=== PATIENT | female | born 1990 | race American Indian/Alaskan Native ===

== ENCOUNTER 2018-11-21 12:20 | Emergency (ER) | payer MEDICAID ==
--- NOTE | 2018-11-21 12:47 | Emergency Department Report ---
Blank Doc - Documentation Documentation: Patient here for nausea and vomitting this morining. Feels tired. LMP september. No vaginal bleeding or discharge no abdominal pain or painful urination. Feels chills O ABdomen soft. NL BS alert and oriented x3 A/P fatigue Nausea Urine, Hcg
[2018-11-21 13:15] LABS: HCG Qualitative,Urine Positive (Negative)
[2018-11-21 13:16] LABS: Bilirubin,Urine NEG (Negative); Blood,Urine NEG (Negative); Color,Urine Yellow (Yellow); Mucus,Urine 1+ /HPF; Protein,Urine <15 mg/dL mg/dL (Negative); Urobilinogen,Urine < 2.0 mg/dL (<2.0)
[2018-11-21] MEDS ORDERED: ZOFRAN IV ONE (14:04)
[2018-11-21] MEDS ORDERED: PEPCID IV ONE (14:04)
[2018-11-21] MEDS ORDERED: NACL 0.9% 1000 ML 1,000 ML IV ONE (14:04)
--- NOTE | 2018-11-21 15:57 | Emergency Department Report ---
Vomiting/Diarrhea - HPI Chief Complaint: Nausea/Vomiting/Diarrhea Stated Complaint: SICK Time Seen by Provider: 11/21/18 12:43 Duration: patient has had nausea and vomiting for approximately 1 month. Patient states that she has a burning sensation in epigastrium. States she can keep some things down at times and sometimes she can't. Severity: moderate Nausea/Vomiting Severity: Moderate Diarrhea Severity: None Pain Location: Epigastric Pain Severity: Mild Symptoms: Yes Able to Tolerate Fluids (occasionally), No Watery Diarrhea, No Bloody diarrhea, No Fever, No Recent Unusual Foods, No Recent Untreated Water, No Recent use of Antibiotics, No Family w/ Similar Symptoms, No Contacts w/ Sim ilar Symptoms, No Rash, No Hematuria, No Recent URI Symptoms ED Review of Systems ROS: Stated complaint: SICK Other details as noted in HPI Comment: All other systems reviewed and negative ED Past Medical Hx - Past Medical History Previous Medical History?: No - Surgical History Past Surgical History?: No - Social History Smoking Status: Never Smoker Substance Use Type: None - Medications Home Medications: Home Medications Medication Instructions Recorded Confirmed Last Taken Type Ondansetron [Zofran Odt] 4 mg PO Q8HR #10 tab.rapdis 11/21/18 Unknown Rx Vomiting Diarrhea Exam - Exam General: Vital signs noted. No distress. Alert and acting appropriately. HEENT: Yes Moist Mucous Membranes, No Pharyngeal Erythema, No Pharyngeal Exudates, No Rhinorrhea, No Conjuctival Injection, No Frontal Tenderness, No Maxillary Tenderness Neck: No Adenopathy, No Rigidity Lungs: Yes Clear Lung Sounds, Yes Good Air Exchange, No Wheezes, No Stridor, No Cough, No Nasal Flaring, No Retractions, No Use of Accessory Muscles Heart exam: Regular: Yes, Murmur: No, Tachycardia: No Abdomen: Tenderness: No, Peritoneal Signs: No, Distention: No, Hyperactive Bowel sounds: No Skin exam: Rash: No, Edema: No, Normal turgor: Yes Neurologic: Alert and oriented, no deficits. Musculoskeletal: Unremarkable. ED Course Vital Signs 11/21/18 12:35 Temperature 98.1 F Pulse Rate 71 Respiratory 20 Rate Blood Pressure 106/66 O2 Sat by Pulse 100 Oximetry ED Medical Decision Making - Lab Data Lab Results 11/21/18 Range/Units 13:03 Urine Color Yellow (Yellow) Urine Turbidity Slightly-cloudy (Clear) Urine pH 5.0 (5.0-7.0) Ur Specific [place] 1.027 (1.003-1.030) Urine Protein <15 mg/dl (Negative) mg/dL Urine Glucose (UA) Neg (Negative) mg/dL Urine Ketones Neg (Negative) mg/dL Urine Blood Neg (Negative) Urine Nitrite Neg (Negative) Ur Reducing Substances Not Reportable Urine Bilirubin Neg (Negative) Urine Ictotest Not Reportable Urine Urobilinogen < 2.0 (<2.0) mg/dL Ur Leukocyte Esterase Neg (Negative) Urine WBC (Auto) 1.0 (0.0-6.0) /HPF Urine RBC (Auto) 2.0 (0.0-6.0) /HPF U Epithel Cells (Auto) 24.0 H (0-13.0) /HPF Urine Mucus 1+ /HPF Urine HCG, Qual Positive A (Negative) - Medical Decision Making Patient was found to be . Patient has no abdominal pain at this time no vaginal bleeding. Patient was hydrated and does feel better regarding her nausea. Patient be discharged home. Critical care attestation.: If time is entered above; I have spent that time in minutes in the direct care of this critically ill patient, excluding procedure time. ED Disposition Clinical Impression: Hyperemesis gravidarum Disposition: DC-01 TO HOME OR SELFCARE Is pt being admited?: No Does the pt Need Aspirin: No Condition: Stable Instructions: Hyperemesis Gravidarum (ED) Referrals: TROY ELAINE MD [Staff Physician] - 3-5 Days Time of Disposition: 15:59
[2018-11-21 16:08] VITALS: BP 113/63
== END 2018-11-21 16:08 | disposition home or self-care (01) ==
LOC: ED 12:20
DX: O21.0 Mild hyperemesis gravidarum (principal); O26.891 Other specified pregnancy related conditions, first trimester; R10.13 Epigastric pain; Z3A.01 Less than 8 weeks gestation of pregnancy
CPT/HCPCS: 81001; 81025; 96361; 96374; 96375; 99283; J2405; J7030

== ENCOUNTER 2018-12-22 10:44 | Emergency (ER) | payer MEDICAID ==
--- NOTE | 2018-12-22 11:58 | Emergency Department Report ---
HPI - General Chief Complaint: Urogenital-Female Time Seen by Provider: 12/22/18 11:45 - HPI HPI: Room 23 The patient is a 28-year-old female presenting with a chief complaint of lower abdominal pain. The patient states she is approximately 12 weeks gestational age but has not yet seen an [facility] [employer]. The patient states she has not felt movement throughout the . Patient states she's had lower abdominal pain for the past 3 days. Patient denies vaginal bleeding. Patient admits to nausea and vomiting throughout the . Location: [See above] Duration: [See above] Quality: [See above] Severity: [See above] Modifying factors: [see above] Context: [see above] Mode of transportation: [not driving] ED Past Medical Hx - Past Medical History Previous Medical History?: No - Surgical History Past Surgical History?: Yes Additional Surgical History: - Family History Family history: no significant - Social History Smoking Status: Never Smoker Substance Use Type: None - Medications Home Medications: Home Medications Medication Instructions Recorded Confirmed Last Taken Type Ondansetron [Zofran Odt] 4 mg PO Q8HR #10 tab.rapdis 11/21/18 Unknown Rx ED Review of Systems ROS: Stated complaint: 12WKS/NO MOVEMENT Other details as noted in HPI Constitutional: no symptoms reported Eyes: denies: eye pain ENT: denies: throat pain Respiratory: no symptoms reported Cardiovascular: denies: chest pain Endocrine: no symptoms reported Gastrointestinal: abdominal pain, nausea, vomiting Genitourinary: denies: abnormal menses Musculoskeletal: denies: back pain Neurological: denies: headache Physical Exam - Physical Exam Vital Signs: Vital Signs 12/22/18 11:08 Temperature 98.4 F Pulse Rate 76 Respiratory 14 Rate Blood Pressure 102/69 [Left] O2 Sat by Pulse 100 Oximetry Physical Exam: GENERAL: The patient is well-developed well-nourished female lying on stretcher not appearing to be in acute distress. [] HEENT: Normocephalic. Atraumatic. Extraocular motions are intact. Patient has moist mucous membranes. NECK: Supple. Trachea midline CHEST/LUNGS: Clear to auscultation. There is no respiratory distress noted. HEART/CARDIOVASCULAR: Regular. There is no tachycardia. There is no gallop rub or murmur. ABDOMEN: Abdomen is soft, with mild suprapubic discomfort to palpation. Patient has normal bowel sounds. There is no abdominal distention. SKIN: There is no rash. There is no edema. There is no diaphoresis. NEURO: The patient is awake, alert, and oriented. The patient is cooperative. The patient has normal speech MUSCULOSKELETAL: There is no evidence of acute injury. ED Course Vital Signs 12/22/18 11:08 Temperature 98.4 F Pulse Rate 76 Respiratory 14 Rate Blood Pressure 102/69 [Left] O2 Sat by Pulse 100 Oximetry ED Medical Decision Making - Lab Data Result diagrams: 12/22/18 12:08 12/22/18 12:08 Laboratory Tests 12/22/18 12/22/18 12/22/18 12:08 12:08 12:29 WBC 5.5 RBC 4.99 Hgb 12.7 Hct 38.6 MCV 77 L MCH 26 L MCHC 33 RDW 17.0 H Plt Count 140 Lymph % (Auto) 19.7 [place] % (Auto) 8.6 H Eos % (Auto) 1.6 Baso % (Auto) 0.3 Lymph # 1.1 L [place] # 0.5 Eos # 0.1 Baso # 0.0 Seg Neutrophils % 69.8 Seg Neutrophils # 3.8 Sodium 133 L Potassium 4.0 Chloride 100.9 Carbon Dioxide 22 Anion Gap 14 BUN 4 L Creatinine 0.6 L Estimated GFR > 60 BUN/Creatinine Ratio 7 Glucose 93 Calcium 8.7 Urine Color Yellow Urine Turbidity Slightly-cloudy Urine pH 5.0 Ur Specific [place] 1.025 Urine Protein <15 mg/dl Urine Glucose (UA) Neg Urine Ketones Neg Urine Blood Neg Urine Nitrite Neg Urine Bilirubin Neg Urine Urobilinogen 2.0 Ur Leukocyte Esterase Neg Urine WBC (Auto) 1.0 Urine RBC (Auto) 2.0 U Epithel Cells (Auto) 16.0 H Urine Bacteria (Auto) 1+ Urine Mucus 1+ - Differential Diagnosis UTI, threatened , demise Critical care attestation.: If time is entered above; I have spent that time in minutes in the direct care of this critically ill patient, excluding procedure time. ED Disposition Clinical Impression: Abdominal pain, Disposition: - LEFT AGAINST MED ADVICE Is pt being admited?: No Does the pt Need Aspirin: No Condition: Undetermined Time of Disposition: 14:11 (patient leaving AMA)
[2018-12-22 12:28] LABS: Basophils % (Auto) 0.3 % (0.0-1.8); Eosinophils # (Auto) 0.1 K/mm3 (0.0-0.4); Eosinophils % (Auto) 1.6 % (0.0-4.3); Hematocrit 38.6 % (30.3-42.9); Hemoglobin 12.7 gm/dl (10.1-14.3); Lymphocytes # (Auto) 1.1 K/mm3 (1.2-5.4); Lymphocytes % (Auto) 19.7 % (13.4-35.0); Mean Corpuscular HGB Conc 33 % (30-34); Mean Corpuscular Volume 77 fl (79-97); Monocytes # (Auto) 0.5 K/mm3 (0.0-0.8); Monocytes % (Auto) 8.6 % (0.0-7.3); Red Blood Count 4.99 M/mm3 (3.65-5.03)
[2018-12-22 12:38] LABS: Platelet Count 140 K/mm3 (140-440)
[2018-12-22 12:40] LABS: BUN/Creatinine Ratio 7; Blood Urea Nitrogen 4 mg/dL (7-17); Calcium 8.7 mg/dL (8.4-10.2); Hemolysis Index 5
[2018-12-22 12:52] LABS: Bacteria,Urine 1+ /HPF (Negative); Bilirubin,Urine NEG (Negative); Blood,Urine NEG (Negative); Color,Urine Yellow (Yellow); Mucus,Urine 1+ /HPF; Protein,Urine <15 mg/dL mg/dL (Negative)
[2018-12-22 14:52] VITALS: BP 139/54
[2018-12-22] MEDS ORDERED: NACL 0.9% 1000 ML 0 ML ONE (16:58)
[2018-12-22] MEDS ORDERED: ZOFRAN ONE (17:00)
[2018-12-22] MEDS ORDERED: PEPCID IV ONE (17:01)
[2018-12-22] MEDS ORDERED: BENTYL IM ONE (17:01)
--- NOTE | 2018-12-22 18:11 | Ultrasound Report ---
PROCEDURE: Limited obstetrical ultrasound. TECHNIQUE: Real-time limited sonographic examination was performed for evaluation of each fetus with image documentation (1 or more fetuses). HISTORY: lower abdominal pain. No movement COMPARISONS: None. FINDINGS: The uterus measures 11.0 cm x 7.4 cm x 10.6 cm. The myometrium is unremarkable. There is an intrauter ine gestational sac. A pole is present. The crown-rump length measurement is 6.1 cm. This indic ates a menstrual age of 12 weeks 4 days. The estimated date of confinement is 07/02/2019. Cardiac acti vity is documented at 164 bpm. Both ovaries appear normal in size. There is a cyst in the right ovary measuring 3.5 cm. IMPRESSION: Viable intrauterine with a menstrual age of 12 weeks 4 days. This document is electronically signed by Christian Maurice MD., December 22 2018 06:09:28 PM ET
--- NOTE | 2018-12-22 18:24 | Ultrasound Report ---
PROCEDURE: US OB TRANSVAGINAL HISTORY: lower abdominal pain. No movement FINDINGS: Real-time ultrasound the pelvis was performed by transabdominal and endovaginal technique, and demonstrates a single live intrauterine gestation at 12 weeks and 4 days with cardiac activ ity 124 bpm. There is subchorionic hemorrhage 2.4 x 1.8 x 1.1 cm. The right ovary measures 5.1 x 3.3 x 4.1 cm and contains a cyst measuring 3.5 cm. The left ovary measures 4.2 x 1.5 x 2.6 cm and appears unremarkable. There is a cyst in the vagina 2.5 x 2.2 x 2.3 cm near the cervix. This could represent a Crystal's du ct cyst. IMPRESSION: Live intrauterine gestation at approximately 12 weeks and 4 days This document is electronically signed by Montez Flores MD., December 22 2018 06:21:51 PM ET
== END 2018-12-22 18:55 | disposition home or self-care (01) ==
LOC: ED 10:44
DX: O21.8 Other vomiting complicating pregnancy (principal); O26.891 Other specified pregnancy related conditions, first trimester; R10.30 Lower abdominal pain, unspecified; Z3A.12 12 weeks gestation of pregnancy
CPT/HCPCS: 36415; 76801; 76817; 80048; 81001; 84702; 85025; 99284; J0500; J2405; J7030

== ENCOUNTER 2019-07-05 11:30 | Inpatient (IN) | payer MEDICAID, OTHER ==
[2019-07-08] MEDS ORDERED: FAMOTIDINE 20 MG/2 ML INJ IV NR (09:17)
[2019-07-08] MEDS ORDERED: BICITRA ORAL LIQD 30ML PO NR (09:17)
[2019-07-08] MEDS ORDERED: METOCLOPRAMIDE 10 MG/2 ML INJ IV NR (09:17)
[2019-07-08] MEDS ORDERED: LACTATED RINGERS 2,000 ML ONE (09:28)
[2019-07-08] MEDS ORDERED: OXYTOCIN 20 UNIT/1000ML DRIP 40,000 MILLIUNITS/2,000 ML BAG IV ONE (09:29)
[2019-07-08] MEDS ORDERED: LACTATED RINGERS 1,000 ML IV SCH (10:00)
[2019-07-08] MEDS ORDERED: OXYTOCIN 20 UNIT/1000ML DRIP 20 UNITS/1,000 ML BAG IV SCH ×2 (10:00→13:00)
[2019-07-08] MEDS ORDERED: ceFAZolin/Water 2 GM/20 ML 2 GM/20 ML SYRINGE IV NR (10:00)
[2019-07-08] MEDS ORDERED: ONDANSETRON 4 MG/2 ML INJ IV PRN ×2 (10:47→12:48)
[2019-07-08] MEDS ORDERED: HYDROmorphone 1 MG/1 ML INJ IV PRN ×2 (10:47)
--- NOTE | 2019-07-08 10:52 | Anesthesia Consultation ---
Anesthesia Consult and Med Hx Date of service: 07/08/19 - Airway Anesthetic Teeth Evaluation: Good ROM Head & Neck: Adequate Mental/Hyoid Distance: Adequate Mallampati Class: Class II Intubation Access Assessment: Probably Good - Pulmonary Exam CTA: Yes - Cardiac Exam Cardiac Exam: RRR - Pre-Operative Health Status ASA Pre-Surgery Classification: ASA2 Proposed Anesthetic Plan: Spinal - Pre-Anesthesia Comment Pre-Anesthesia Comments: PSH: CSECTION X 1, NO ANESTHESIA COMPLICATIONS - Pulmonary Hx Smoking: No Hx Asthma: No Hx Respiratory Symptoms: No SOB: No COPD: No Home Oxygen Therapy: No Hx Pneumonia: No Hx Sleep Apnea: No - Cardiovascular System Hx Hypertension: No Hx Coronary Artery Disease: No Hx Heart Attack/AMI: No Hx Angina: No Hx Percutaneous Transluminal Coronary Angioplasty (PTCA): No Hx Cardia Arrhythmia: No Hx Pacemaker: No Hx Internal Defibrillator: No Hx Valvular Heart Disease: No Hx Heart Murmur: No Hx Peripheral Vascular Disease: No - Central Nervous System Hx Neuromuscular Disorder: No Hx Seizures: No CVA: No Hx Back Pain: No Hx Psychiatric Problems: No - Gastrointestinal Hx Ulcer: No Hx Gastroesophageal Reflux Disease: No - Endocrine Hx Renal Disease: No Hx End Stage Renal Disease: No Hx Cirrhosis: No Hx Liver Disease: No Hx Insulin Dependent Diabetes: No Hx Non-Insulin Dependent Diabetes: No Hx Thyroid Disease: No Hx Hypothyroidism: No Hx Hyperthyroidism: No - Hematic Hx Anemia: No Hx Sickle Cell Disease: No - Other Systems Hx Alcohol Use: No Hx Substance Use: No Hx Cancer: No Hx Obesity: No
--- NOTE | 2019-07-08 10:52 | Anesthesia Day of Surgery ---
Anesthesia Day of Surgery - Day of Surgery Patient Examined: Yes Patient H&P Reviewed: Yes Patient is NPO: Yes Beta Blockers: No Cardiac Clearance: No Pulmonary Clearance: No Judson's Test: N/A
[2019-07-08] MEDS ORDERED: DEXMEDETOMIDINE 200 MCG/2 ML VIAL IV ONE (11:03)
[2019-07-08 11:06] LABS: Basophils % (Auto) 0.3 % (0.0-1.8); Eosinophils % (Auto) 0.5 % (0.0-4.3); Hematocrit 34.8 % (30.3-42.9); Hemoglobin 11.1 gm/dl (10.1-14.3); Lymphocytes # (Auto) 1.3 K/mm3 (1.2-5.4); Lymphocytes % (Auto) 28.9 % (13.4-35.0); Mean Corpuscular HGB Conc 32 % (30-34); Mean Corpuscular Volume 74 fl (79-97); Monocytes # (Auto) 0.5 K/mm3 (0.0-0.8); Monocytes % (Auto) 10.4 % (0.0-7.3); Red Blood Count 4.69 M/mm3 (3.65-5.03); Red Cell Distribution Width 18.1 % (13.2-15.2)
[2019-07-08] MEDS ORDERED: WATER FOR IRRIG STERILE 1,500 ML BOTTLE IR ONE (11:30)
[2019-07-08] MEDS ORDERED: SODIUM CHLORIDE 0.9% IRR 1,500 ML BOTTLE IR ONE (11:30)
--- NOTE | 2019-07-08 11:31 | History and Physical Report ---
History of Present Illness Date of examination: 07/08/19 Date of admission: 07/08/19 09:15 Chief complaint: IOL for repeat csearean Past History Past Medical History: no pertinent history Past Surgical History: no surgical history Social history: . denies: smoking, alcohol abuse, prescription drug abuse - Obstetrical History Expected Date of Delivery: 07/05/19 Actual Gestation: 40 Week(s) 3 Day(s) : 2 Para: 1 Hx # Term Pregnancies: 1 Number of Pregnancies: 0 Spontaneous Abortions: 0 Induced : 0 Number of Living Children: 1 Medications and Allergies Allergies Allergy/AdvReac Type Severity Reaction Status Date / Time No Known Allergies Allergy Unverified 11/21/18 12:23 Home Medications Medication Instructions Recorded Confirmed Last Taken Type Ondansetron [Zofran Odt] 4 mg PO Q8HR #10 tab.rapdis 11/21/18 07/08/19 Unknown Rx Active Meds: Active Medications Famotidine (Pepcid) 20 mg IV ONCE NR Stop: 07/08/19 13:00 Last Admin: 07/08/19 10:46 Dose: 20 mg Documented by: Hydromorphone HCl (Dilaudid) 0.5 mg IV Q5M PRN PRN Reason: BREAK Stop: 07/08/19 11:48 Hydromorphone HCl (Dilaudid) 0.5 mg IV Q4H PRN PRN Reason: breakthrough pain > 7/10 Oxytocin/Sodium Chloride (Pitocin/Ns 20 Unit/1000ml Drip) 20 units in 1,000 mls @ 0 mls/hr IV TITR KENIA Lactated Ringer's (Lactated Ringers) 1,000 mls @ 2,250 mls/hr IV PREOP KENIA Stop: 07/09/19 10:27 Cefazolin Sodium (Ancef/Sterile Water 2 Gm/20 Ml) 2 gm in 20 mls @ 80 mls/hr IV PREOP NR; Protocol Stop: 07/08/19 13:00 Ondansetron HCl (Zofran) 4 mg IV Q8H PRN PRN Reason: Nausea And Vomiting Sodium Chloride (Sodium Chloride Flush Syringe 10 Ml) 10 ml IV PRN KENIA Review of Systems All systems: negative - Physical Exam Breasts: Positive: normal Cardiovascular: Regular rate, Normal S1 Lungs: Positive: Clear to auscultation, Normal air movement Abdomen: Positive: normal appearance Genitourinary (Female): Positive: normal external genitalia, normal perenium Vagina: Positive: normal moisture Uterus: Positive: normal size Anus/Rectum: Positive: normal perianal skin Extremities: Positive: normal Deep Tendon Reflex Grade: Normal +2 - Obstetrical FHR: category 1 Results Result Diagrams: 07/08/19 10:00 Abnormal lab results 07/08/19 Range/Units 10:00 WBC 4.4 L (4.5-11.0) K/mm3 MCV 74 L (79-97) fl MCH 24 L (28-32) pg RDW 18.1 H (13.2-15.2) % [place] % (Auto) 10.4 H (0.0-7.3) % All other labs normal. Assessment and Plan A/P IUP 40+ weeks Previosu csec -desires repeat HX of trich treated and neg hx of throbocytopenia IVF, labs discused r/b/a of repeat csec which include bleeding , infection, damage to pelvic and non pelvic organs risk of anesthesia risk, hysterecomy and
[2019-07-08 11:42] LABS: Platelet Count 120 K/mm3 (140-440)
--- NOTE | 2019-07-08 12:42 | Procedure Note ---
OB Delivery Note - Delivery Date of Delivery: 07/08/19 Surgeon: BIA MARTE Estimated blood loss: other (700cc) - Section Preop diagnosis: repeat Postop diagnosis: same section procedure: section Disposition: PACU Complications: none Narrative: see op note - Infant A at 1 minute: 8 at 5 minutes: 9 Gender: Female (7 pounds 12.4oz)
[2019-07-08] MEDS ORDERED: PROMETHAZINE 25 MG RECT SUPP PR PRN (12:48)
[2019-07-08] MEDS ORDERED: SENNOSIDES 8.6 MG TAB PO PRN (12:48)
[2019-07-08] MEDS ORDERED: LANOLIN/ZINC/DIMETHICONE (LANSINOH) 7 GM TP PRN (12:48)
[2019-07-08] MEDS ORDERED: MORPHINE 2 MG/1 ML INJ IV PRN (12:48)
[2019-07-08] MEDS ORDERED: MAGNESIUM HYDROXIDE (MOM) ORAL LIQD UDC PO PRN (12:48)
[2019-07-08] MEDS ORDERED: KETOROLAC 30 MG/1 ML INJ IV PRN (12:48)
[2019-07-08] MEDS ORDERED: NALOXONE 0.4 MG/1 ML INJ IV PRN (12:48)
[2019-07-08] MEDS ORDERED: MORPHINE 4 MG/1 ML INJ IV PRN (12:48)
[2019-07-08] MEDS ORDERED: HYDROCORTISONE 25 MG RECTAL SUPP PR PRN (12:48)
[2019-07-08] MEDS ORDERED: WITCH HAZEL/ GLYCERIN PAD TP PRN (12:48)
--- NOTE | 2019-07-08 12:48 | Operative Report ---
Operative Report Operative Report: DATE: 07/08/19 PREOPERATIVE DIAGNOSES: 1. Intrauterine at 40 weeks. 2. History of previous section x1. The patient desires a repeat section. POSTOPERATIVE DIAGNOSES: 1. Intrauterine at 39 weeks. 2. History of previous section x1. The patient desires a repeat section. PROCEDURE PERFORMED: Repeat section SURGEON: Dr. Rosa Eisenberg MD ANESTHESIA: Spinal. ESTIMATED BLOOD LOSS: 700 mL. COMPLICATIONS: None. FINDINGS: Female infant in cephalic presentation with anteflexed head, Apgars were 8 at 1 minute and 9 at 5 minutes, and weight 7 pounds 12.4 ounces. Normal uterus, tubes, and ovaries were noted. INDICATIONS: The patient is a 28-year-old 2, para 1 female, who presented to repeat section at term. The patient has a history of 1 previous sections and she desires a repeat section The procedure was described to the patient in detail including possible risks of bleeding, infection, injury to surrounding organs, and the possible need for further surgery and informed consent was obtained. PROCEDURE NOTE: The patient was taken to the operating room where spinal anesthesia was administered without difficulty. The patient was prepped and draped in the usual sterile fashion in the dorsal supine position with a leftwar d tilt. A Pfannenstiel skin incision was made with the scalpel and carried through to the underlying layer of fascia using the Bovie. The fascia was incised in the midline and extended laterally using Lambert scissors. Avril clamps were used to elevate the superior aspect of the fascial incision, which was elevated, and the underlying rectus muscles were dissected off bluntly and using Lambert scissors. Attention was then turned to the inferior aspect of the fascial incision, which in similar fashion was grasped with Avril clamps, elevated, and the underlying rectus muscles were dissected off bluntly and using the Bovie. The rectus muscles were dissected in the midline. The peritoneum was identified and entered using Metzenbaum scissors; this incision was extended superiorly and inferiorly with good visualization of the bladder. The bladder blade was inserted. The vesicouterine peritoneum was identified and entered sharply using Metzenbaum scissors. This incision was extended laterally and the bladder flap was created digitally. The bladder blade was reinserted. The lower uterine segment was incised in a transverse fashion using the scalpel and extended using bandage scissors as well as manual traction. Clear fluid was noted. The infant was subsequently delivered in cephalic presentation. . The nose and mouth were bulb suctioned. The cord was clamped and cut. The infant was subsequently handed to the awaiting nursery nurse. The placenta was delivered spontaneously intact with a three-vessel cord noted. The uterus was exteriorized and cleared of all clots and debris. The uterine incision was repaired in 2 layers using 0 chromic sutures. Hemostasis was visualized.. The uterus was returned to the abdomen, both fallopian tubes were visualized and were noted to be hemostatic. The uterine incision was reexamined and it was noted to be hemostatic. The pelvis was copiously irrigated. The rectus muscles were reapproximated in the midline using 3-0 Vicryl. The fascia was closed with 0 PDS suture, the subcutaneous layer was closed with 3-0 plain gut, and the skin was closed with Uche needle . Sponge, lap, and instrument counts were correct x2. The patient was stable at the completion of the procedure and was subsequently transferred to the recovery room in stable condition.
--- NOTE | 2019-07-08 13:11 | Post Anesthesia Evaluation ---
- Post Anesthesia Evaluation Patient Participated: Yes Airway Patent: Yes Stable Respiratory Function: Yes Nausea/Vomiting: No Temp > 96.8F: Yes Pain Manageable: Yes Adequeate Hydration: Yes Anesthesia Complications: No Block Receding Appropriately: Yes Patient on Ventilator: No
[2019-07-08] MEDS: KETOROLAC 30 MG/1 ML INJ IV PRN ×2 (17:10→23:36)
[2019-07-08] MEDS: D5W/LACTATED RINGERS 1,000 ML IV SCH ×2 (17:25→23:36)
[2019-07-09 00:39] LABS: Hematocrit 30.6 % (30.3-42.9); Hemoglobin 9.9 gm/dl (10.1-14.3)
[2019-07-09] MEDS: SIMETHICONE 80 MG CHEW TAB PO PRN ×3 (04:56→16:46)
[2019-07-09] MEDS: HYDROcodone/ACETAMINOPHEN 5-325 MG TAB PO PRN ×2 (05:06→10:56)
[2019-07-09] MEDS ORDERED: TETANUS,DIPH,PERTUSS(ACELL) VACCINE 0.5 ML SYRINGE IM ONE (06:00)
[2019-07-09] MEDS: IBUPROFEN 800 MG TAB PO PRN ×2 (08:50→18:14)
[2019-07-09] MEDS: PRENATAL VIT27-FE FUMARATE-FOLIC ACID VIT TAB PO SCH (08:59)
[2019-07-09] MEDS: FERROUS SULFATE 325 MG TAB PO SCH (08:59)
[2019-07-09] MEDS ORDERED: MEASLES, MUMPS & RUBELLA 12,500 UNIT/0.5 ML VACCINE SUB-Q ONE (12:49)
--- NOTE | 2019-07-09 14:10 | Progress Note ---
Assessment and Plan A/P POD 1 s.p repeat csec routine Pospartum orders rh + hgb 11.1-9.9 Doing well Subjective - Subjective Date of service: 07/09/19 Principal diagnosis: s/p repeat Patient reports: appetite normal, voiding normally, pain well controlled, flatus, ambulating normally : doing well Objective - Vital Signs Latest vital signs: Vital Signs Temp Pulse Resp BP BP Pulse Ox 07/09/19 07:55 98.9 F 94 H 18 112/72 98 07/09/19 04:55 98.1 F 85 18 113/70 98 07/09/19 02:21 97.8 F 85 18 113/59 99 07/08/19 21:30 98.2 F 88 18 117/60 98 07/08/19 17:10 20 07/08/19 16:29 97.7 F 83 20 117/61 100 07/08/19 14:30 73 20 113/62 100 07/08/19 14:15 60 20 113/69 92 Intake and Output 07/08/19 07/09/19 07/09/19 23:59 07:59 15:59 Intake Total 772.917 240 840 Output Total 200 600 Balance 572.917 -360 840 Intake: IV 772.917 D5lr 1,000 ml @ 125 mls/ 772.917 hr IV DIRECT KENIA Rx#: [id number] Oral 360 Intake, Free Water 240 480 Output: Urine 200 600 Indwelling Catheter 200 600 Other: Total, Intake Amount 360 Total, Output Amount 200 600 # Voids Indwelling Catheter 2 3 Void 1 Estimated Blood Loss 700 - Exam Breasts: Present: normal Cardiovascular: Present: Regular rate, Normal S1 Lungs: Present: Clear to auscultation, Normal air movement Abdomen: Present: normal appearance, soft, normal bowel sounds. Absent: distention, tenderness, guarding Uterus: Present: normal, firm, fundal height below umbilicus. Absent: bogginess, tenderness Extremities: Present: normal Deep Tendon Reflex Grade: Normal +2 Incision: Present: normal, dry, intact - Labs Labs: Abnormal lab results 07/09/19 Range/Units 00:18 Hgb 9.9 L (10.1-14.3) gm/dl
[2019-07-09] MEDS: oxyCODONE /ACETAMINOPHEN 5-325MG TAB PO PRN ×2 (16:47→23:16)
[2019-07-10] MEDS: IBUPROFEN 800 MG TAB PO PRN ×2 (01:28→23:06)
--- NOTE | 2019-07-10 09:28 | Progress Note ---
Assessment and Plan A/P POD 2 s.p repeat csec routine orders rh + hgb 11.1-9.9 Doing well d/c home tomorrow Subjective - Subjective Date of service: 07/10/19 Principal diagnosis: s/p repeat Patient reports: appetite normal, voiding normally, pain well controlled, flatus, ambulating normally : doing well Objective - Vital Signs Latest vital signs: Vital Signs Temp Pulse Resp BP Pulse Ox 07/10/19 07:53 97.9 F 86 18 112/68 98 07/10/19 01:31 98.1 F 83 20 108/73 99 07/09/19 17:49 98.6 F 87 18 115/79 99 Intake and Output 07/09/19 07/10/19 07/10/19 23:59 07:59 15:59 Intake Total 840 480 240 Balance 840 480 240 Intake: Oral 480 480 240 Intake, Free Water 360 Other: Total, Intake Amount 120 240 240 # Voids Indwelling Catheter 2 1 Void 1 1 - Exam Breasts: Present: normal Cardiovascular: Present: Regular rate, Normal S1 Lungs: Present: Clear to auscultation, Normal air movement Abdomen: Present: normal appearance, soft, normal bowel sounds. Absent: distention, tenderness, guarding Uterus: Present: normal, firm, fundal height below umbilicus. Absent: bogginess , tenderness Extremities: Present: normal Deep Tendon Reflex Grade: Normal +2 Incision: Present: normal, dry, intact
[2019-07-10] MEDS: FERROUS SULFATE 325 MG TAB PO SCH (10:01)
[2019-07-10] MEDS: PRENATAL VIT27-FE FUMARATE-FOLIC ACID VIT TAB PO SCH (10:01)
[2019-07-10] MEDS: HYDROcodone/ACETAMINOPHEN 5-325 MG TAB PO PRN (15:57)
[2019-07-10] MEDS: oxyCODONE /ACETAMINOPHEN 5-325MG TAB PO PRN (20:45)
[2019-07-11] MEDS: IBUPROFEN 800 MG TAB PO PRN (05:33)
--- NOTE | 2019-07-11 08:55 | Progress Note ---
Assessment and Plan A/P POD 3 s.p repeat csec routine orders rh + hgb 11.1-9.9 Doing well d/c home today Subjective - Subjective Date of service: 07/11/19 Principal diagnosis: s/p repeat Patient reports: appetite normal, voiding normally, pain well controlled, flatus, ambulating normally [place]: doing well Objective - Vital Signs Latest vital signs: Vital Signs Temp Pulse Resp BP BP Pulse Ox 07/11/19 07:41 98.1 F 83 18 111/74 100 07/11/19 00:05 98.1 F 79 20 112/64 98 07/10/19 16:04 98.1 F 75 18 118/77 99 Intake and Output 07/10/19 07/11/19 07/11/19 23:59 07:59 15:59 Intake Total 840 480 Balance 840 480 Intake: Oral 600 480 Intake, Free Water 240 Other: Total, Intake Amount 240 240 # Voids Void 1 1 - Exam Breasts: Present: normal Cardiovascular: Present: Regular rate, Normal S1 Lungs: Present: Clear to auscultation, Normal air movement Abdomen: Present: normal appearance, soft, normal bowel sounds. Absent: distention, tenderness, guarding Vulva: both: normal Uterus: Present: normal, firm, fundal height below umbilicus. Absent: bogg iness, tenderness Extremities: Present: normal Deep Tendon Reflex Grade: Normal +2 Incision: Present: normal, dry, intact
--- NOTE | 2019-07-11 08:58 | Discharge Summary ---
Providers - Providers Date of Admission: 07/08/19 09:15 Date of discharge: 07/11/19 Attending physician: OPAL NEELY Primary care physician: OPAL NEELY Hospitalization Reason for admission: section Delivery: Procedure: section, repeat low transverse Episiotomy: none Laceration: none Incision: normal, dry, intact Other procedures: none complications: none Discharge diagnosis: IUP at term delivered [place] baby: female Hospital course: Patient admitted and had a repeat csec. Patient did well Postop and discharged home with viable female on PPD3 Condition at discharge: Good Disposition: DC-01 TO HOME OR SELFCARE Plan - Discharge Medications Prescriptions: Ferrous Sulfate [Feosol 325 MG tab] 325 mg PO BID #60 tablet Ibuprofen [Motrin] 600 mg PO Q8H PRN #30 tablet PRN Reason: Pain oxyCODONE /ACETAMINOPHEN [Percocet 5/325] 1 tab PO Q6HR PRN #30 tablet PRN Reason: Pain - Provider Discharge Summary Activity: routine, no sex for 6 weeks, no strenuous exercise Diet: routine Instructions: routine Additional instructions: [] Smoking cessation referral if applicable(refer to patient education folder for contact #) [] Refer to [facility]'s [facility] Booklet Call your doctor immediately for: * Fever > 100.5 * Heavy vaginal bleeding ( >1 pad per hour) * Severe persistent headache * Shortness of breath * Reddened, hot, painful area to leg or breast * Drainage or odor from incision. * Keep incision clean and dry at all times and follow doctor's instructions regarding bathing/showering - Follow up plan Follow up: OPAL NEELY MD [Primary Care Provider] - 14 Days Forms: [facility] Discharge Summary
[2019-07-11] MEDS: FERROUS SULFATE 325 MG TAB PO SCH (10:09)
[2019-07-11] MEDS: PRENATAL VIT27-FE FUMARATE-FOLIC ACID VIT TAB PO SCH (10:09)
[2019-07-11 11:23] VITALS: BP 120/83
== END 2019-07-11 11:25 | disposition home or self-care (01) | DRG 788 ==
LOC: APU 07-08 09:15 → OB 07-08 15:30
PROVIDERS: ADMIT Obstetrics & Gynecology; ATTEND Obstetrics & Gynecology
PROC: 10D00Z1 Extraction of Products of Conception, Low, Open Approach (ICD-10-PCS; principal; 2019-07-08)
PROC: 3E0234Z Introduction of Serum, Toxoid and Vaccine into Muscle, Percutaneous Approach (ICD-10-PCS; 2019-07-09)
DX: O34.211 Maternal care for low transverse scar from previous cesarean delivery (principal); Z23 Encounter for immunization; Z37.0 Single live birth; Z3A.40 40 weeks gestation of pregnancy
CPT/HCPCS: 36415; 85014; 85018; 85025; 86850; 86900; 86901; G0378; C9250; J0690; J1170; J1885; J2405; J2590; J2765; J3490; J7120; J7121